=== PATIENT | male | born 1985 | race Two or more races ===

== ENCOUNTER 2021-01-15 01:50 | Emergency (ER) | payer OTHER ==
[~2021-01-15] VITALS: Ht 160 cm; Wt 75.3 kg
[2021-01-15 02:13] VITALS: BP 137/71
== END 2021-01-15 03:55 | disposition home or self-care (01) ==
LOC: ER 01:50
DX: S60.212A Contusion of left wrist, initial encounter (principal); S60.211A Contusion of right wrist, initial encounter; M25.511 Pain in right shoulder; X58.XXXA Exposure to other specified factors, initial encounter; Y93.89 Activity, other specified; Y92.89 Other specified places as the place of occurrence of the external cause; Y99.8 Other external cause status
CPT/HCPCS: 73020; 73100